=== PATIENT | male | born 1945 | race Caucasian/White ===

== ENCOUNTER 2019-06-12 12:50 | Observation (INO) | payer MEDICARE ==
[2019-06-08 14:37] LABS: INR 0.97; PROTHROMBIN TIME 13.4 seconds (11.9-14.5)
[2019-06-08 14:39] LABS: ANION GAP 16.3 mmol/L (8-16); CREATININE, SERUM 1.29 mg/dL (0.72-1.25); POTASSIUM 4.3 mmol/L (3.5-5.1)
[2019-06-08 14:45] LABS: BASOPHILS # (AUTO) 0.2 (0.0-0.1); BASOPHILS % 1.4 % (0.0-1.0); EOSINOPHILS # (AUTO) 0.5 (0.0-0.4); EOSINOPHILS % 3.7 % (0.0-6.0); HEMOGLOBIN 15.1 g/dL (14.0-18.0); LYMPHOCYTES # (AUTO) 3.5 (1.0-3.2); LYMPHOCYTES % 27.3 % (18.0-39.1); MEAN CORPUSCULAR HEMOGLOBIN 23.5 pg (28-32); MEAN CORPUSCULAR HGB CONC 30.8 g/dL (31-35); MEAN CORPUSCULAR VOLUME 76.3 fL (81-99); MONOCYTES # (AUTO) 1.2 (0.2-0.8); NEUTROPHILS # (AUTO) 7.3 (2.1-6.9); NEUTROPHILS % 57.3 % (38.7-80.0); PLATELET COUNT 391 x10e3/uL (140-360); RED BLOOD COUNT 6.42 x10e6/uL (4.3-5.7); RED CELL DISTRIBUTION WIDTH 18.5 % (11.7-14.4)
--- NOTE | 2019-06-08 16:07 | Diagnostic Imaging Report ---
EXAMINATION: PA and lateral views of the chest. COMPARISON: None CLINICAL HISTORY: Preop for prostate surgery DISCUSSION: Lines/tubes: None. Lungs: The lungs are well inflated and grossly clear. There is no evidence of pneumonia or pulmonary edema. Pleura: There is no pleural effusion or pneumothorax. Heart and mediastinum: Cardiomediastinal silhouette is unremarkable. Pulmonary vasculature is normal. Bones and soft tissues: No acute bony abnormalities. Degenerative changes in the thoracic spine IMPRESSION: No acute cardiopulmonary abnormalities. Signed by: Dr. Sixto Sotomayor M.D. on 06/08/2019 4:04 PM
[~2019-06-12 12:50] MED LIST: ASPIRIN81 MG PO; CARVEDILOL12.5 MG PO; GLIMEPIRIDE2 MG PO; LISINOPRIL10 MG PO; LYRICA75 MG PO; METFORMIN HCL850 MG PO; NORCO 7.5-3251 EACH PO; SAXAGLIPTIN PO; SIMVASTATIN40 MG PO
--- OUTSIDE RECORDS SUMMARY | 2019-06-12 13:06 | XMS REPORT ---
Author Author [facility] [place] Address Unknown Phone Unavailable Care Team Providers Care Glass Unloading Equipment Tender Name Role Phone RYAN AYOUB Unavailable Unavailable Problems This patient has no known problems. Allergies, Adverse Reactions, Alerts This patient has no known allergies or adverse reactions. Medications This patient has no known medications. Results Test Description Test Time Test Comments Text Results Atomic Results Result Comments CHEST 2 VIEWS 2019-06-08 16:03:00 [facility] [address] [address] Patient Name: CHAVA PRICE MR #: [id number] : 1945 Age/Sex: 73/M Req #: [id number] Adm Physician: Ordered by: RYAN AYOUB MD Report #: [id number] Location: OR Room/Bed: Procedure: [id number] DX/CHEST 2 VIEWS Exam Date: 06/08/19 Exam Time: 1340 REPORT STATUS: Signed EXAMINATION: PA and lateral views of the chest. COMPAR JOLEEN: None CLINICAL HISTORY: Preop for prostate surgery DISCUSSION: Lines/tubes: None. Lungs: The lungs are well inflated and grossly clear. There is no evidence of pneumonia or pulmonary edema. Pleura: There is no pleural effusion or pneumothorax. Heart and mediastinum: Cardiomediastinal silhouette is unremarkable. Pulmonary vasculature is normal. Bones and soft tissues: No acute bony abnormalities. Degenerative changes in the thoracic spine IMPRESSION: No acute cardiopulmonary abnormalities. Signed by: Dr. Norberto Sotomayor M.D. on 06/08/2019 4:04 PM Dictated By: NORBERTO SOTOMAYOR MD Transcribed By: CHRIS on 06/08/191603 COPY TO: RYAN AYOUB MD
[2019-06-12] MEDS ORDERED: CEFOXITIN 1GM/ D5W 50ML 50 ML IV ONE (13:27)
[2019-06-12] MEDS ORDERED: PROPOFOL IV EMULSION 10 MG/ML 20 ML VIAL ONE (15:58)
[2019-06-12] MEDS ORDERED: SEVOFLURANE INHAL SOLN 250 ML PEN BTL ONE (15:58)
[2019-06-12] MEDS ORDERED: LIDOCAINE HCL 2% LOCAL INJ 5 ML SDV VIAL INJ ONE (15:58)
[2019-06-12] MEDS ORDERED: DEXTROSE 50% SYRINGE 50 ML IV PRN (16:30)
[2019-06-12] MEDS ORDERED: FENTANYL CITRATE/PF 100MCG/2 ML INJ ONE (16:30)
[2019-06-12] MEDS: INSULIN REGULAR, HUMAN 100 UNIT/1 ML 3ML VIAL SQ SCH ×2 (16:30→19:46)
[2019-06-12] MEDS ORDERED: MORPHINE SULFATE 2 MG/ML SYR 1ML ONE (16:51)
[2019-06-12] MEDS ORDERED: CEFOXITIN 1GM/ D5W 50ML 50 ML IV SCH (18:00)
[2019-06-12] MEDS: CARVEDILOL 12.5 MG TAB PO SCH (18:07)
[2019-06-12] MEDS: DOCUSATE SODIUM 100 MG CAP PO SCH (18:07)
[2019-06-12] MEDS: SODIUM CHLORIDE 0.9% 1000ML 1,000 ML IV SCH ×2 (18:07→19:54)
[2019-06-12 18:21] VITALS: BP 185/80
[2019-06-12 18:32] VITALS: BP 185/80
[2019-06-12] MEDS: HYDROCODONE/APAP 7.5MG-325MG 1 EA TAB PO PRN (19:19)
[2019-06-12] MEDS: CEFOXITIN 1GM/ D5W 50ML 50 ML IV SCH (19:24)
[2019-06-12 19:30] VITALS: BP 185/80
[2019-06-12 20:00] VITALS: BP 117/63
[2019-06-12] MEDS: PREGABALIN 50 MG CAP PO SCH (20:02)
[2019-06-12] MEDS ORDERED: PREGABALIN 75 MG CAP PO SCH (21:00)
[2019-06-12] MEDS ORDERED: SIMVASTATIN 40 MG TAB PO SCH (21:00)
--- NOTE | 2019-06-12 22:27 | Operative Report ---
DATE OF PROCEDURE: 06/12/2019 SURGEON: Tito Salazar MD PREOPERATIVE DIAGNOSIS: Nodular prostate with obstruction and urinary retention. POSTOPERATIVE DIAGNOSIS: Nodular prostate with obstruction and urinary retention. OPERATION PERFORMED: Cystoscopy with ultrasound-directed transrectal prostate biopsy. IV SEDATION: General. INDICATIONS: This patient initially presented to me with an acute urinary retention in the office. He was severely uncomfortable and with great difficulty, I was ultimately able to insert an 18-Romanian coude catheter and he had 1000 mL residuals of prostate felt like a rock. The patient found the catheter extremely uncomfortable and he needed to have narcotic analgesics for help with the catheter pain. During the time of his initial examination, his stool was occult blood positive and he had large hemorrhoids and there was blood in his urine. The patient had a prostate-specific antigen of 2.9, which is normal. A CT scan of the abdomen and pelvis with and without contrast revealed evidence of bilateral renal cysts measuring up to 4 mm in size. There was no evidence of renal or ureteral calculi or hydronephrosis. The prostate was enlarged, but was inhomogeneous. The bladder wall was thickened. There was evidence of an abdominal aortic aneurysm with postsurgical changes. The patient also had calcified granulomas of the liver. There were calcifications identified in the spleen and pancreas. Gallbladder appeared normal. In view that he had a normal PSA and his prostate felt like a rock and he had blood in the stool, I had the patient first see a check cashier to look at his rectum to make sure he did not have a carcinoma of the rectum and the patient was found to have a colonoscopy, three colon polyps were removed. The pathology results are pending, but the check cashier could find no evidence of cancer of the rectum and was well convinced that the rock-hard mass in the rectum is most likely his prostate. Plan at this time is to proceed with cystoscopy and ultrasound-directed transrectal prostate biopsy. For further details, please refer to the history and physical. The procedure was done in following fashion. DESCRIPTION OF PROCEDURE: The patient was taken to the operating room, placed under general anesthesia and dressed and draped with Hibiclens in the supine position in the usual fashion. Cystourethroscopy was performed with the Olympus flexible cystoscope after taking out the Woods catheter. The urethra was severely inflamed from the catheter. The prostatic urethra was grossly distorted from the inflammation and I had difficulty visualizing the verumontanum. The prostate was estimated about 6 cm in length. There was some fluffy material inside the bladder, but it would irrigate away from the cystoscope when I turned all the water. This appeared to be a result of chronic irritation from the Woods catheter. No bladder tumors or bladder stones were identified. The bladder was severely trabeculated and efflux seen from both ureteral orifices. The cystoscope was curved back on itself to against the back wall of the bladder and down at the prostate as well. The middle lobe actually appeared normal. Once this was accomplished, the cystoscope was withdrawn. The patient was then turned to lateral decubitus position with the right side up and ultrasound scan of the prostate was then performed. The prostate was enormous and it was at least 6 cm long. The other multiple hypoechoic areas identified with some internal calcifications as well. The prostate felt like an absolute rock under general anesthesia. The anatomy of the prostate was so distorted and we had difficulty identifying where the seminal vesicles were because everything was so rock-hard confluent mass. Sextant biopsies of the prostate were performed using the [employer] biopsy gun through the ultrasound probe. Specimens were taken from the right base laterals and right base medials and right mid laterals and right mid medials and right apex laterals and right apex medials and left base laterals and left base medials and left mid laterals and left mid medials and left apex laterals and left apex medials. Once this was accomplished, the ultrasound probe was removed and the patient was then returned to supine position and a 20-Romanian coude catheter was inserted. The patient tolerated the procedure well and left the operating room in good condition. Further recommendations were made after the results of the prostate biopsy. Dr. Jae Romero has been counseled with the help of medical management. Tito Salazar MD SRA/MODL /[id number]
[2019-06-13 00:04] VITALS: BP 116/60
[2019-06-13 00:37] VITALS: BP 116/60
[2019-06-13] MEDS: CEFOXITIN 1GM/ D5W 50ML 50 ML IV SCH ×2 (01:13→08:10)
[2019-06-13 04:00] VITALS: BP 152/87
[2019-06-13] MEDS: HYDROCODONE/APAP 7.5MG-325MG 1 EA TAB PO PRN ×2 (04:41→13:10)
--- NOTE | 2019-06-13 07:58 | NUR ---
Medical consultation Requesting physician: Reason for consult: medical mgmt cc: prostate disease HPI: 73yoM, admitted by for BPH/prostate disease, underwent cystoscopy and prostate biopsy. Mcintosh kept for urinary retention. PMH: BPH, UTI, Nocturia, chr urinary retention using chr mcintosh, microscopic hematuria, HTN, DM2, HLD, CAD sp stent 04/2005, current smoker pSHx: mcintosh; coronary stent Allergies; see emr FH: lung cancer father, DM mother SH: ; 1ppd cigs meds; see MAR ROS: no f/c/s/N/V/D/WALLIS/vision changes/cp/sob/back pain/skin rash v/s revd PE tired appearing anicteric ns1s2 mod bs soft nt nd Mcintosh in place no e/t skin dry n. affect a&ox3; duron labs/med revd A/P: BPH Chronic urinary retention JEFF vs CKD Current smoker/Nicotine dependence CAD DM2 HTn HLD PLAN s/p cystoscopy and prostate bx continue mcintosh hba1c/lipids Cigarette reduction/cessation Check labs d/c planning; f/u with for bx results. Jae Romero MD, PhD.
[2019-06-13 08:01] VITALS: BP 159/84
[2019-06-13 08:10] VITALS: BP 159/84
[2019-06-13] MEDS: CARVEDILOL 12.5 MG TAB PO SCH (08:10)
[2019-06-13] MEDS: DOCUSATE SODIUM 100 MG CAP PO SCH (08:10)
[2019-06-13] MEDS: INSULIN REGULAR, HUMAN 100 UNIT/1 ML 3ML VIAL SQ SCH ×2 (08:10→12:00)
[2019-06-13] MEDS: PREGABALIN 50 MG CAP PO SCH (08:10)
[2019-06-13 08:48] LABS: BASOPHILS # (AUTO) 0.1 (0.0-0.1); EOSINOPHILS # (AUTO) 0.2 (0.0-0.4); EOSINOPHILS % 1.6 % (0.0-6.0); HEMATOCRIT 44.6 % (38.2-49.6); HEMOGLOBIN 13.8 g/dL (14.0-18.0); LYMPHOCYTES # (AUTO) 2.5 (1.0-3.2); LYMPHOCYTES % 18.3 % (18.0-39.1); MEAN CORPUSCULAR HEMOGLOBIN 23.4 pg (28-32); MEAN CORPUSCULAR HGB CONC 30.9 g/dL (31-35); MEAN CORPUSCULAR VOLUME 75.5 fL (81-99); MONOCYTES # (AUTO) 1.3 (0.2-0.8); MONOCYTES % 9.5 % (4.4-11.3); NEUTROPHILS # (AUTO) 9.5 (2.1-6.9); PLATELET COUNT 333 x10e3/uL (140-360); RED BLOOD COUNT 5.91 x10e6/uL (4.3-5.7); RED CELL DISTRIBUTION WIDTH 17.6 % (11.7-14.4)
[2019-06-13] MEDS ORDERED: ASPIRIN 81 MG CHEW TAB PO SCH (09:00)
[2019-06-13] MEDS ORDERED: LISINOPRIL 10 MG TAB PO SCH (09:00)
[2019-06-13 09:02] LABS: ANION GAP 14.5 mmol/L (8-16); BLOOD UREA NITROGEN 15 mg/dL (7-26); BUN/CREATININE RATIO 16 (6-25); CALCIUM 9.6 mg/dL (8.4-10.2); CARBON DIOXIDE 23 mmol/L (22-29); CHLORIDE 103 mmol/L (98-107); CREATININE, SERUM 0.96 mg/dL (0.72-1.25); EST GLOMERULAR FILTRATION RATE > 60 ML/MIN (60-); GLUCOSE 226 mg/dL (74-118); POTASSIUM 4.5 mmol/L (3.5-5.1); SODIUM 136 mmol/L (136-145)
[2019-06-13 09:21] LABS: CHOL/HDL RATIO 3.9 (3.9-4.7)
--- NOTE | 2019-06-13 09:42 | NUR ---
PT IN PAIN, DID NOT WANT TO PARTICIPATE IN DPA AT PRESENT
[2019-06-13 11:57] VITALS: BP 141/57
--- NOTE | 2019-06-13 15:10 | Progress Note ---
DATE: 06/13/2019 Discharge Progress Note SUBJECTIVE: The patient is one-day status post cystoscopy and ultrasound-directed transrectal prostate biopsy. The bladder was trabeculated. The total architecture of the prostate was abnormal and also prostate biopsy pending. Dr. Scott has been notified that the patient had a normal PSA and has had a colonoscopy preoperatively because of the blood in the stools. PLAN: At this time is to discharge the patient to resume his preoperative medications, which include Flagyl. He will have a return appointment to see me again in 2 or 3 days, so that he can get his Touchet renewed. Hopefully, by that time, we will have the results of the pathology. Further recommendations will be made based upon the biopsy results. Tito Salazar MD SRA/MODL /[id number]
== END 2019-06-13 13:15 | disposition home or self-care (01) ==
LOC: OR 12:50 → PACU V 16:16 → IMCU 17:49
PROVIDERS: ADMIT Urology; ATTEND Urology
DX: C61 Malignant neoplasm of prostate (principal); N40.3 Nodular prostate with lower urinary tract symptoms; N13.8 Other obstructive and reflux uropathy; R33.8 Other retention of urine; I25.10 Atherosclerotic heart disease of native coronary artery without angina pectoris; I10 Essential (primary) hypertension; R31.29 Other microscopic hematuria; K64.4 Residual hemorrhoidal skin tags; E11.42 Type 2 diabetes mellitus with diabetic polyneuropathy; I71.4 Abdominal aortic aneurysm, without rupture; R19.5 Other fecal abnormalities; E78.00 Pure hypercholesterolemia, unspecified; Z83.3 Family history of diabetes mellitus; Z80.1 Family history of malignant neoplasm of trachea, bronchus and lung; Z79.84 Long term (current) use of oral hypoglycemic drugs
CPT/HCPCS: 36415 ×3; 55700; 71046; 76872; 76942; 80048 ×2; 80061; 82948 ×2; 83036; 85025 ×2; 85610; 88305; 88342; 93005; C1726; G0378 ×2; J1817; J2001; J2270; J2704; J3010; J7030; 76998